=== PATIENT | female | born 1975 | race Caucasian/White ===

== ENCOUNTER → 2020-03-01 14:31 | Outpatient (CLI) | payer OTHER, SELFPAY ==
[2020-03-02 10:39] LABS: Mumps Virus IgG Antibody 77.7 AU/mL (Immune >10.9)
[2020-03-03 15:57] LABS: Rubella Antibody IgG 41.3 IU/mL (>15)
== END ==
PROVIDERS: PCP Family Medicine; Referring Provider Family Medicine; Visit Provider Family Medicine
DX: Z01.84 Encounter for antibody response examination (principal)
CPT/HCPCS: 36415; 86735; 86762; 86765